=== PATIENT | female | born 1990 | race Caucasian/White ===

== ENCOUNTER 2017-02-21 03:26 | Inpatient (IN) | payer BC ==
[~2017-02-21] VITALS: Ht 157.5 cm; Wt 54.5 kg
[2017-02-27 02:06] LABS: HEMATOCRIT 38.5 % (37-47); MEAN CELL VOLUME 90.8 fL (80-100); MEAN CORPUSCULAR HEMOGLOBIN 31.4 pg (25-34); MEAN CORPUSCULAR HGB CONC 34.5 g/dl (32-36); MEAN PLATELET VOLUME 10.6 fL (7.4-10.4); PLATELET COUNT 196 K/uL (130-400); RED BLOOD COUNT 4.24 M/uL (4.2-5.4); WHITE BLOOD COUNT 13.92 K/uL (4.8-10.8)
[2017-02-27] MEDS ORDERED: PRENTAB26 PO (02:06)
[2017-02-27 02:14] VITALS: Ht 157.5 cm; Wt 54.5 kg
[2017-02-27] MEDS ORDERED: DINOPROSTONE 10 MG INSERT PV ONE (09:00)
--- NOTE | 2017-02-27 09:20 | Progress Note ---
Progress Note Date of Service February 27, 2017. Progress Note Admit Note 26 F P0000 at 40.6 weeks admitted for induction of labor for post-dates. Cervix 1-2/60/-3/vertex/posterior. EFW 8 lbs. GBS negative. FHT Cat 1. No complications during . Cervidil 10 mg placed in vagina.
--- NOTE | 2017-02-27 14:36 | Progress Note ---
Progress Note Date of Service February 27, 2017. Progress Note Contractions are now regular. Cervix /-2. Cervidil removed. T Cat 1. Will consider epidural forlabor.
[2017-02-27] MEDS ORDERED: BUPIVACAINE 0.25% 30 ML VIAL ONE (14:57)
[2017-02-27] MEDS: LACTATED RINGER'S 1000ML 1,000 ML IV PRN ×2 (14:58→23:27)
[2017-02-27] MEDS ORDERED: FENTANYL CITRATE INJ 50 MCG/1 ML 2 ML VIAL ONE ×2 (14:58→20:08)
[2017-02-27] MEDS ORDERED: EpHEDrine SULFATE INJ 50 MG/ML AMP ONE (14:58)
[2017-02-27] MEDS ORDERED: FENTANYL 2MCG/ML ROPIV 1.25MG/ML 100ML BAG EPI ONE (14:58)
[2017-02-27] MEDS: LACTATED RINGER'S 1000ML 1,000 ML IV SCH ×2 (15:57→23:27)
[2017-02-27] MEDS ORDERED: NALOXONE HCL INJ 1 MG in SODIUM CHLORIDE 0.9% 1000ML 1,000 ML IV PRN (16:24)
[2017-02-27] MEDS ORDERED: LACTATED RINGER'S 1000ML 500 ML IV PRN ×2 (16:24→19:56)
[2017-02-27] MEDS ORDERED: DiphenhydrAMINE HCL 50 MG/ML VIAL IV PRN (16:30)
[2017-02-27] MEDS ORDERED: NALBUPHINE HCL INJ 10 MG/ML AMP IV PRN (16:30)
[2017-02-27] MEDS ORDERED: EpHEDrine SULFATE INJ 50 MG/ML AMP IV PRN (16:30)
[2017-02-27] MEDS ORDERED: NALOXONE HCL INJ 0.4 MG/1 ML VIAL/CARP IV PRN (16:30)
--- NOTE | 2017-02-27 17:13 | Progress Note ---
Progress Note Date of Service February 27, 2017. Progress Note cervix 4-/-2 AROM with clear fluid FHT Cat 1
[2017-02-27] MEDS: FENTANYL 2MCG/ML ROPIV 1.25MG/ML 100ML BAG EPI PRN ×3 (19:08→23:15)
--- NOTE | 2017-02-27 19:56 | Progress Note ---
Progress Note Date of Service February 27, 2017. Progress Note Cervix /-2 FHT Cat 1 Will start oxytocin to augment contractions EFW 8 lbs.
[2017-02-27] MEDS ORDERED: OXYTOCIN 30 UNITS/500ML NSS IV PRN (20:00)
--- NOTE | 2017-02-27 23:42 | Progress Note ---
Progress Note Date of Service February 27, 2017. Progress Note Cervix /-1 T Cat 1
[2017-02-28] MEDS: FENTANYL 2MCG/ML ROPIV 1.25MG/ML 100ML BAG EPI PRN ×3 (01:56→07:05)
[2017-02-28] MEDS ORDERED: SODIUM CHLORIDE 0.65% NA SOLN 45 ML (OCEAN) ONE (02:06)
[2017-02-28] MEDS ORDERED: SODIUM CHLORIDE 0.65% NA SOLN 45 ML (OCEAN) PRN (02:15)
[2017-02-28] MEDS ORDERED: NURSING DECISION MEDICATION ORDER ONE (02:15)
[2017-02-28] MEDS: LACTATED RINGER'S 1000ML 1,000 ML IV SCH ×2 (05:19→13:06)
[2017-02-28] MEDS ORDERED: MISOPROSTOL 200 MCG TAB ONE (12:07)
[2017-02-28] MEDS ORDERED: SUPERCREAM 0.870 % 15GM JAR EXT PRN (13:00)
[2017-02-28] MEDS ORDERED: MISOPROSTOL 200 MCG TAB PR SCH (13:00)
[2017-02-28] MEDS ORDERED: BENZOCAINE 20% AER SPR 82.5 GM CAN EXT PRN (13:00)
[2017-02-28] MEDS ORDERED: HYDROCORTISONE ACETATE 25 MG SUPP PR PRN (13:00)
[2017-02-28] MEDS ORDERED: ACETAMINOPHEN/CODEINE 300/30MG TAB PO PRN ×2 (13:00)
[2017-02-28] MEDS ORDERED: OXYCODONE/ACETAMINOPHEN 5-325 TAB PO PRN (13:00)
[2017-02-28] MEDS ORDERED: OXYTOCIN 30 UNITS/500ML NSS IV PRN (13:00)
[2017-02-28] MEDS ORDERED: LANOLIN OINT EXT PRN ×2 (13:00)
[2017-02-28] MEDS ORDERED: ACETAMINOPHEN 325 MG TAB PO PRN (13:00)
[2017-02-28] MEDS ORDERED: IBUPROFEN 600 MG TAB ONE (13:24)
--- NOTE | 2017-02-28 15:50 | Anesthesia Procedure Note ---
Anesthesia Epidural Removal Nt Date & Time February 28, 2017 at 15:51 Vital Signs Pain Intensity: 1.0 Notes Mental Status: alert / awake / arousable, participated in evaluation Nausea / Vomiting: adequately controlled Pain: adequately controlled Airway Patency, RR, SpO2: stable & adequate BP & HR: stable & adequate Hydration State: stable & adequate Neuraxial Anesthesia: was administered Anesthetic Complications: no major complications apparent, pt satisfied with anesthetic care Epidural: removed without complications, with tip intact
--- NOTE | 2017-02-28 17:21 | DELIVERY SUMMARY ---
DATE OF OPERATION: 02/28/2017 DELIVERY NOTE The patient delivered a live male in occiput posterior presentation. There was loose nuchal cord which was easily reduced. Infant was delivered. Cord was clamped and cut. There was delayed cord clamping. After 1 minute the cord was clamped and cut and placed on mother's abdomen. 's weight is pending. Apgars 8 and 9. Inspection of the perineum showed a midline second-degree laceration with a left sulcus tear which was repaired with 2-0 Vicryl in layers. There was good sphincter tone after repair. Rectal exam post repair showed no sutures palpable in the rectum. Estimated blood loss is 500 mL. Placenta appears grossly normal. There is a 3-vessel cord seen on placenta. There is good hemostasis. and mother are doing well in recovery. All instruments are removed from the vagina including sponges, needles and retractors. After labor mother and baby are doing well in recovery. I attest to the content of the Intraoperative Record and any orders documented therein. Any exceptio ns are noted below.
[2017-02-28 17:53] VITALS: BP 119/77; PULSE 91; TEMP 37.2; O2SAT 100; O2SAT 98
[2017-02-28 20:00] VITALS: BP 118/80; PULSE 91; TEMP 36.8; O2SAT 100
[2017-02-28] MEDS: DOCUSATE SODIUM 100 MG CAP PO SCH (20:04)
[2017-02-28] MEDS: IBUPROFEN 600 MG TAB PO PRN (20:54)
[2017-02-28 23:20] VITALS: BP 110/70; PULSE 83; TEMP 36.8; O2SAT 98
[2017-03-01 03:15] VITALS: BP 106/72; PULSE 82; TEMP 36.6; O2SAT 98
[2017-03-01 05:44] LABS: HEMATOCRIT 29.2 % (37-47)
--- NOTE | 2017-03-01 07:46 | OB/GYN Progress Note ---
NEWS VIDEOTAPE EDITOR Progress Note Date of Service: March 01, 2017. Patient is seen and examined. She feels well, no complaints. Ambulating without dizziness Voiding without difficulty Tolerating regular diet with out N&V Bleeding is minimal No fever/ chills/ CP/ SOB/ N&V/ Leg pain Breast feeding without problems Date Time Temp Pulse Resp B/P Pulse Ox O2 Delivery O2 Flow Rate FiO2 03/01/17 03:15 36.6 82 18 106/72 98 Room Air 02/28/17 23:20 36.8 83 18 110/70 98 Room Air 02/28/17 23:20 Room Air 02/28/17 20:00 36.8 91 18 118/80 100 Room Air 02/28/17 17:53 100 Room Air 02/28/17 17:53 37.2 91 20 119/77 98 Room Air Last 24 Hours Test 03/01/17 05:22 Hemoglobin 10.0 g/dL Hematocrit 29.2 % PE: General: Alert, orientedx3, NAD Abd: soft, NT, fundus firm, below Umbilicus Perineum intact, Lochia rubra minimal Ext; NT, no edema AP: 26 yo s/p , ppd# 1 VSS Afebrile doing well Continue routine care All questions were answered D/C home tomorrow
[2017-03-01 08:00] VITALS: BP 114/80; PULSE 76; TEMP 36.6; O2SAT 98
[2017-03-01] MEDS: PRENATAL VITAMIN TAB PO SCH (08:05)
[2017-03-01] MEDS: DOCUSATE SODIUM 100 MG CAP PO SCH ×2 (08:05→20:27)
[2017-03-01] MEDS: FERROUS SULFATE 325 MG TAB PO SCH (08:05)
[2017-03-01] MEDS: IBUPROFEN 600 MG TAB PO PRN ×3 (08:06→19:00)
[2017-03-01] MEDS ORDERED: IBUPROFEN 600 MG TAB PO PRN (08:15)
[2017-03-01] MEDS ORDERED: BENZOCAINE 20% AER SPR 82.5 GM CAN EXT PRN (08:15)
[2017-03-01] MEDS ORDERED: LANOLIN OINT EXT PRN ×2 (08:15)
[2017-03-01] MEDS ORDERED: OXYCODONE/ACETAMINOPHEN 5-325 TAB PO PRN (08:15)
[2017-03-01] MEDS ORDERED: SUPERCREAM 0.870 % 15GM JAR EXT PRN (08:15)
[2017-03-01] MEDS ORDERED: OXYTOCIN 30 UNITS/500ML NSS IV PRN (08:15)
[2017-03-01] MEDS ORDERED: ACETAMINOPHEN/CODEINE 300/30MG TAB PO PRN ×2 (08:15)
[2017-03-01] MEDS ORDERED: ACETAMINOPHEN 325 MG TAB PO PRN (08:15)
[2017-03-01] MEDS ORDERED: HYDROCORTISONE ACETATE 25 MG SUPP PR PRN (08:15)
--- NOTE | 2017-03-01 08:58 | DELIVERY SUMMARY ---
DATE OF OPERATION: 03/01/2017 The patient delivered a live infant female in left occiput anterior presentation. There was nuchal cord which was easily reduced. Infant was delivered and placed on mother's abdomen. Delayed cord clamp was performed 1 minute after delivery. Placenta was spontaneously delivered. Inspection of the placenta showed grossly normal placenta with 3-vessel cord. Inspection of the perineum and vagina showed no significant laceration. There was a first degree left vaginal wall laceration which did not require suturing. Estimated blood loss was 500 mL. The patient received Pitocin and Cytotec rectally. Blood pressures are in normal range post-delivery. All instruments are removed from the vagina and accounted for x2 including sponges and retractors. Baby and mother are doing well and hemodynamically stable in recovery. I attest to the content of the Intraoperative Record and any orders documented therein. Any exceptio ns are noted below.
[2017-03-01] MEDS ORDERED: MISOPROSTOL 200 MCG TAB PR SCH (09:00)
[2017-03-01 14:55] VITALS: BP 120/74; PULSE 83; TEMP 37
[2017-03-01] MEDS ORDERED: BISACODYL 5 MG TABEC PO SCH (20:00)
[2017-03-01] MEDS ORDERED: DOCUSATE SODIUM 100 MG CAP PO SCH (20:00)
[2017-03-01 23:55] VITALS: BP 114/78; PULSE 84; TEMP 36.8
[2017-03-02] MEDS: IBUPROFEN 600 MG TAB PO PRN (04:03)
[2017-03-02 06:53] LABS: MEAN CELL VOLUME 90.9 fL (80-100); MEAN CORPUSCULAR HEMOGLOBIN 30.1 pg (25-34); MEAN CORPUSCULAR HGB CONC 33.1 g/dl (32-36); MEAN PLATELET VOLUME 10.1 fL (7.4-10.4); PLATELET COUNT 205 K/uL (130-400); RED BLOOD COUNT 3.19 M/uL (4.2-5.4); WHITE BLOOD COUNT 15.86 K/uL (4.8-10.8)
[2017-03-02] MEDS ORDERED: BISACODYL 10 MG SUPP PR PRN (07:00)
[2017-03-02] MEDS ORDERED: PRENATAL VITAMIN TAB PO SCH (08:00)
[2017-03-02] MEDS ORDERED: FERROUS SULFATE 325 MG TAB PO SCH (08:00)
[2017-03-02] MEDS: FERROUS SULFATE 325 MG TAB PO SCH (08:29)
[2017-03-02] MEDS: DOCUSATE SODIUM 100 MG CAP PO SCH (08:29)
[2017-03-02] MEDS: PRENATAL VITAMIN TAB PO SCH (08:29)
[2017-03-02 08:30] VITALS: BP 112/76; PULSE 88; TEMP 36.6; O2SAT 99
[2017-03-02] MEDS ORDERED: MTR600X PO (10:47)
--- NOTE | 2017-03-02 10:49 | Discharge Instructions ---
Discharge Instructions Date of Service March 02, 2017. Admission Reason for Admission: Induction Discharge Discharge Diagnosis / Problem: term delivered Discharge Goals Goal(s): Routine recovery after delivery Activity Recommendations Activity Limitations: as noted below Lifting Limitations: no more than 10 pounds Exercise/Sports Limitations: until after follow-up appointment May Resume Sexual Activity: after follow-up appointment Shower/Bathe: no limitations Driving or Machine Use: resume 3 days after discharge . Instructions / Follow-Up Instructions / Follow-Up ACTIVITY RECOMMENDATIONS: * Gradual return to full activity over the next 2-3 weeks. * No lifting - nothing heavier than baby over the next 2-3 weeks. * Do not engage in vigorous exercise, sexual activity or sports until cleared by your physician. * Do not drive or operate any motorized equipment until cleared by your physician. * You may shower/bathe daily. BREAST CARE: If you are not breast feeding: * Wear a supportive bra 24 hours a day for one to two weeks. * Avoid stimulating your breasts and nipples as much as possible during the first few weeks after delivery. * When taking a shower, have the warm water hit your back, not breasts. * When your breasts feel full, apply ice packs. Usually three to four times a day helps ease the discomfort. * Take a mild pain medication (Tylenol/Motrin) when you are uncomfortable. If breast feeding: * Use breast milk to lubricate nipples. Lansinoh cream may be used for sore nipples. You do not need to remove cream prior to breast feeding. If using a different brand of cream, check the label for directions regarding removal of cream prior to nursing. * Wear a supportive bra. * If having problems with breasts or breast feeding, call a information technology consultant or your health care provider. EPISIOTOMY CARE: After delivery, if you have an episiotomy (stitches), the following steps will ease discomfort and aid healing. * For the first 24 hours after delivery, place ice packs next to your episiotomy to help reduce swelling. * After the first 24 hour-period, sitz baths, either portable or in the tub, are suggested. A shower with a shower arm sprayed over the episiotomy may be comforting. * Jeniffer care should be done after each voiding and bowel movement. Squirt warm water from a plastic bottle over the perineum (region of the body between the anus and urinary opening) and pat dry. * Use Dermoplast to ease discomfort. Shake container. Inman directly over the episiotomy. * Place a Tucks on a clean sanitary pad next to your episiotomy. OVER THE COUNTER MEDICATION: * For discomfort or pain, you may use Acetaminophen (Tylenol), Ibuprofen (Advil ), or Naproxen (Aleve) following the package directions. * For constipation you may use Colace following the package directions. SPECIAL CARE INSTRUCTIONS: When you are discharged from the hospital, it is important for you to follow the instructions listed below: * During the first week at home, you should be able to care for yourself and your baby. In addition, the usual light household activities are encouraged. * Limit your activities to the way you feel. Do not try to clean the house or move furniture. Be sensible. * If you actively engage in sports and have done so up until the time of your delivery, you may resume these activities as soon as you feel able. This may take up to one month or even longer. Use good judgment. * Continue to take your vitamins for at least six weeks after the of your baby. * Your diet need not be limited unless you were on a special diet before your delivery. Breast-feeding mothers need around 2500 calories per day and at least 64-80 ounces of fluid per day (8 to 10 glasses). * You should eat foods from the four major food groups. Crash diets or fad diets are to be avoided. Eating lean meats, fresh fruits and vegetables, low-fat dairy products, high fiber foods and a regular exercise program, will help you get back to your pre- weight without putting your health at risk. * Constipation is sometimes a problem after delivery. Take a mild laxative as needed. If breast feeding, Milk of Magnesia is acceptable to use. You may use a suppository or Fleets enema if no episiotomy. * A daily shower or tub bath is suggested. Be sure to thoroughly and gently dry the perineum. * A bloody vaginal discharge will usually continue until around four weeks post . A small amount of bleeding may continue for as long as six weeks. Vaginal discharge changes from the bright red bleeding after delivery to pink then brownish and finally yellowish-pink before becoming white and disappearing. * Bleeding may increase with activity. Your first period may come in 4-8 weeks. If you are breast feeding, your period may be delayed even longer. * Timken (sex) can begin whenever both you and your partner feel comfortable and do not have any form of genital infection. It is recommended that you wait until after your return appointment and discuss with your physician. If you have questions, please talk to your health care practitioner. A condom should be used to prevent infection and . * Foreplay, gentle intercourse and lubrication is very important the first several times to prevent pain. A water-based lubricant such as K-Y jelly or Astroglide may be used. * Tampons may be used six weeks after delivery. * Douching should be avoided for 6 weeks after delivery. * If you have RH negative blood and your baby is RH positive, you will receive RHOGAM by injection prior to discharge. The nurse will give you a card to keep with you that has the date and place that you received RHOGAM after delivery. * During your care, you had a Rubella screen done to check for the presence of rubella antibodies in your blood. If your test was negative, you will receive a Rubella vaccine prior to discharge. This vaccine may cause a fever, soreness at the injection site and flu-like symptoms. If these symptoms persist, notify your health care practitioner. is not advised for three months after a Rubella vaccine. There is a higher chance of having a baby with defects if conceived within three months of getting the vaccine. * If you were discharged 24 hours from delivery or before 48 hours: Visiting nurses will come to your home 48 hours after discharge to assess you and your baby. The visiting nurse will meet with you while you are in the hospital to arrange a time and get directions to your home. * Verbalizes understanding of car seat law as reviewed with patient nursing. * Car Seat hand-out given and reviewed with patient by nursing. * Shaken baby information reviewed with patient by nursing. Call you doctor if: * Heavy bleeding (saturating several pads an hour) or passing clots the size of your fist. * A fever >101 degrees F (38.3 degrees C) on two occasions four hours apart and/or chills. * Unusual pain in the pelvic or vaginal areas. * "Baby Blues" lasting longer than two weeks. If you have any questions or concerns, call your health care practitioner at . FOLLOW-UP VISIT: * Please call the office at to schedule a 6 week examination. It is important you keep this appointment. * It is important for you to make arrangements for either yearly or twice yearly check-ups thereafter. Current Hospital Diet Patient's current hospital diet: Regular OB Diet Discharge Diet Recommended Diet: Regular OB Diet Fluid Restriction: None Pending Studies Studies pending at discharge: no Work Instructions Return To Work: after follow-up Lifting Limitations: no more than 10 pounds Medical Emergencies . Who to Call and When: Medical Emergencies: If at any time you feel your situation is an emergency, please call 911 immediately. . Non-Emergent Contact Non-Emergency issues call your: Primary Care Provider . . "Provider Documentation" section prepared by Clifton Kruse. . VTE Core Measure Inpt VTE Proph given/why not?: Treatment not indicated
--- NOTE | 2017-03-02 10:51 | OB/GYN Progress Note ---
LEGAL JOB TITLES Progress Note Date of Service March 02, 2017. Subjective conversation w/ patient, conversation w/ family, physical exam Ambulation: ambulating normally Voiding: no voiding problems Passing Gas: Yes Diet Tolerance: Regular Diet Lochia: Small Feeding Type: Breast Feeding Objective Vital Signs Date Time Temp Pulse Resp B/P Pulse Ox O2 Delivery O2 Flow Rate FiO2 03/02/17 08:30 99 Room Air 03/02/17 08:30 36.6 88 16 112/76 99 Room Air 03/01/17 23:55 Room Air 03/01/17 23:55 36.8 84 18 114/78 Room Air 03/01/17 14:55 37.0 83 18 120/74 Room Air 03/01/17 14:55 Room Air Physical Exam General Appearance: WELL-APPEARING, NO APPARENT DISTRESS Abdomen: non tender, soft, no organomegaly Fundus: Firm Extremities: non-tender, normal inspection, no pedal edema, no calf tenderness Laboratory Results Last 24 Hours Test 03/02/17 06:37 White Blood Count 15.86 K/uL Red Blood Count 3.19 M/uL Hemoglobin 9.6 g/dL Hematocrit 29.0 % Mean Corpuscular Volume 90.9 fL Mean Corpuscular Hemoglobin 30.1 pg Mean Corpuscular Hemoglobin Concent 33.1 g/dl RDW Standard Deviation 45.4 fL RDW Coefficient of Variation 13.6 % Platelet Count 205 K/uL Mean Platelet Volume 10.1 fL Assessment and Plan Post- Day Number: 2 Continue Routine Care: discharged
[2017-03-02 12:40] VITALS: BP_DIAS 76; PULSE 88; TEMP 36.6
[2017-03-02] MEDS ORDERED: BISACODYL 5 MG TABEC PO SCH (20:00)
[2017-03-03] MEDS ORDERED: BISACODYL 10 MG SUPP PR PRN (07:00)
== END 2017-03-02 12:40 | disposition home or self-care (01) | DRG 775 ==
LOC: C.LD 02-27 00:56 → C.OBG 02-28 18:03
PROVIDERS: ADMIT Obstetrics & Gynecology; ATTEND Obstetrics & Gynecology
PROC: 3E033VJ Introduction of Other Hormone into Peripheral Vein, Percutaneous Approach (ICD-10-PCS; principal; 2017-02-28)
PROC: 10E0XZZ Delivery of Products of Conception, External Approach (ICD-10-PCS; principal; 2017-02-28)
PROC: 3E0P7GC Introduction of Other Therapeutic Substance into Female Reproductive, Via Natural or Artificial Opening (ICD-10-PCS; principal; 2017-02-28)
PROC: 0KQM0ZZ Repair Perineum Muscle, Open Approach (ICD-10-PCS; principal; 2017-02-28)
PROC: 10907ZC Drainage of Amniotic Fluid, Therapeutic from Products of Conception, Via Natural or Artificial Opening (ICD-10-PCS; principal; 2017-02-28)
DX: O48.0 Post-term pregnancy (principal); O70.1 Second degree perineal laceration during delivery; O69.81X0 Labor and delivery complicated by cord around neck, without compression, not applicable or unspecified; O71.89 Other specified obstetric trauma; Z3A.40 40 weeks gestation of pregnancy; Z37.0 Single live birth

== ENCOUNTER 2020-04-27 10:33 | Inpatient (IN) ==
[2020-04-27] MEDS ORDERED: OXYTOCIN 30 UNITS/500 ML BAG IV PRN ×2 (11:30→18:33)
--- NOTE | 2020-04-27 11:39 | History & Physical Report ---
Date of Service April 27, 2020 Assessment & Plan (1) Spontaneous rupture of amniotic membranes: 29 yo at 39.4 wks with SROM at 0930 am, regular contractions VSS Afebrile FHR reassuring GBS negative Plan to admit, monitor, epidural for pain All questions were answered History of Present Illness Primary Care Provider: NO PCP Patient is a 29 yo at 39.4 wks who felt a gush of fluid leaking at 0930 am, it was clear She has been feeling contractions since then No VB +FM Her has been uncomplicated GBS negative Allergies Allergy/AdvReac Type Severity Reaction Status Date / Time Cephalosporins Allergy Intermediate HIVES Verified 04/27/20 10:55 Home Medications Home Medications Medication Instructions Recorded Confirmed Type PNV cmb#95-ferrous fumarate-FA 1 tab PO DAILY 04/27/20 04/27/20 History [] Patient History Medical History No known health problems Surgical History H/O wisdom tooth extraction History of tonsillectomy Family History Grandfather (Maternal) Colon cancer Hypertension Mother Diabetes Hypertension Father Diabetes Hypertension Grandmother (Maternal) Hypertension Social History Preferred Language: Chinese Cook Specialty Required: No Beliefs That Will Affect Care: None marital status: Current Living Situation: Spouse Current Living Situation Comment: lives with and 3 yo son Other Information That Helps Us Care for You: No Feels Safe at Home: Yes Safety Concerns: Feels Safe At This Time Smoking Status: Never smoker Hx Alcohol Use: No Hx Substance Use: No [employer] History in 2017 Review of Systems All systems reviewed & are unremarkable except as noted in HPI & below Physical Exam Constitutional: WD/WN, vitals as above well developed, well nourished and + acute distress (mild distress with contractions) Gastrointestinal (Abdomen): normal bowel sounds, soft, nontender, no hepatosplenomegaly (Gravid) Genitourinary: normal external appearance OB Exam Abdomen: + vertex Manual OB Exam: + cervical dilation 3 cm, + cervical effacement 70%, + station (hig) high and + amniotic fluid (abundant) clear OB Exam Monitor Tracing: + external uterine monitor used and + category I Results & Data Vital Signs (Past 12 Hours) Vital Signs Temp Pulse Resp BP 04/27/20 10:48 37.3 C 88 16 139/71 04/27/20 10:45 37.3 C 88 16 139/71
[2020-04-27] MEDS: LACTATED RINGER'S 1,000 ML IV PRN ×2 (11:44→12:43)
[2020-04-27 11:48] LABS: Hematocrit (blood only) 39.2 % (37-47); Hemoglobin 13.4 g/dL (12.0-16.0); Mean Corpuscular Hemoglobin 30.7 pg (25-34); Mean Corpuscular Volume 89.9 fL (80-100); Mean Platelet Volume 10.2 fL (7.4-10.4); Platelet Count 257 K/uL (130-400); RDW Coefficient of Variation 13.5 % (11.5-14.5); RDW Standard Deviation 44.2 fL (36.4-46.3); Red Blood Count 4.36 M/uL (4.2-5.4); White Blood Count 14.23 K/uL (4.8-10.8)
[2020-04-27] MEDS ORDERED: ePHEDrine sulfate 50 MG/ML AMP ONE (12:02)
[2020-04-27] MEDS ORDERED: BUPIVACAINE 0.25% 30 ML VIAL ONE (12:02)
[2020-04-27] MEDS ORDERED: fentaNYL citrate 100 MCG/2 ML VIAL ONE (12:02)
[2020-04-27] MEDS ORDERED: fentaNYL 2MCG/ML ROPIV 1.25MG/ML 100 ML BAG EPI ONE (12:03)
[2020-04-27 12:15] LABS: Albumin Level 2.9 gm/dl (3.4-5.0); BUN Creatinine Ratio 16.6 (10-20); Calcium 9.1 mg/dl (8.5-10.1); Creatinine Clr Calc Pharmacy 108.5 ml/min; Est GFR (African American) 130.2; Est GFR (Non-African American) 112.4; Potassium 3.9 mmol/L (3.5-5.1)
[2020-04-27 12:18] LABS: Albumin Globulin Ratio 0.7 (0.9-2); Bilirubin,Total 0.3 mg/dl (0.2-1); Globulin 4.4 gm/dl (2.5-4.0); Total Protein 7.3 gm/dl (6.4-8.2)
[2020-04-27 12:30] LABS: Mean Corpuscular Hgb Conc 34.2 g/dL (32-36)
--- NOTE | 2020-04-27 12:30 | Anesthesiology Consultation ---
Date of Service April 27, 2020 Assessment & Plan (1) Encounter for pre-operative examination: Chart Review Chart Review: Patient NOT seen in Pre Admission Testing and Acceptable Risk for Labor Epidural Consults Requested none ASA ASA2 Proposed Anesthesia Anesthesia Type: Labor Epidural Risk / Benefits Reviewed With: PT / POA / Parent / Guardian, Accepts Plan and Informed Consent Obtained History Height/Weight Height: 5 ft 2 in Weight: 75.296 kg Allergies Allergy/AdvReac Type Severity Reaction Status Date / Time Cephalosporins Allergy Intermediate HIVES Verified 04/27/20 10:55 Medications Home Medications Medication Instructions Recorded Confirmed Last Taken PNV cmb#95-ferrous fumarate-FA 1 tab PO DAILY 04/27/20 04/27/20 04/27/20 08:00 [] Active Medications Generic Name Dose Route Start Last Admin Trade Name Freq PRN Reason Stop Dose Admin Lactated Ringer's 1,000 mls @ 150 mls/hr 04/27/20 11:30 04/27/20 12:43 Lr IV 04/29/20 11:29 150 mls/hr .[id number] PRN Administration L&D Protocol Protocol NPO Date Last Intake of Fluids: 04/27/20 Time Last Intake of Fluids: 12:28 Date Last Intake of Solids: 04/27/20 Time Last Intake of Solids: 08:30 Past Medical History Medical History No known health problems Exercise / Class Metabolic Activity II 4-5 Yardwork/Stairs/Walk up hill Past Family History Family History Grandfather (Maternal) Colon cancer Hypertension Mother Diabetes Hypertension Father Diabetes Hypertension Grandmother (Maternal) Hypertension Past Surgical History Surgical History H/O wisdom tooth extraction History of tonsillectomy Past Anesthesia History No Hx of Anesthesia Complications History of PONV No Hx of PONV Social History Smoking Status: Never smoker Hx Alcohol Use: No Hx Substance Use: No substance use type: does not use Review of Systems Patient denies history of abnormal bleeding or bleeding disorder. Patient de nies active use of anticoagulants other than low dose aspirin. Patient denies numbness, tingling or weakness in lower extremities. Physical Exam Vital Signs Last Vital Signs Temp 37.3 C 04/27/20 10:48 Pulse 77 04/27/20 12:23 Resp 16 04/27/20 10:48 BP 139/71 04/27/20 10:48 Pulse Ox 100 04/27/20 12:23 Constitutional not obese (Gravid uterus) ENMT Mouth: no TMJ abnormality and oral opening not small Thyromental Distance: > or= 3.5 Finger Breadths Mallampati Class: II Neck normal visual inspection; neck extension not limited Respiratory normal respiratory effort Auscultation: lungs clear to auscultation bilaterally Cardiovascular Rate/Rhythm: regular rate and regular rhythm Heart Sounds: no murmur Neurologic moves all extremities Motor/Sensory: no sensory deficit Psychiatric Orientation: alert and oriented x 3 Testing Laboratory Results 04/27/20 11:35 04/27/20 11:35
[2020-04-27] MEDS ORDERED: fentaNYL 2MCG/ML ROPIV 1.25MG/ML 100 ML BAG EPI PRN (13:04)
[2020-04-27] MEDS ORDERED: NALOXONE HCL 0.4 MG/1 ML VIAL/CARP IV PRN (13:04)
[2020-04-27] MEDS ORDERED: DiphenhydrAMINE HCL 50 MG/ML VIAL IV PRN (13:04)
[2020-04-27] MEDS ORDERED: NALOXONE HCL 1 MG in SODIUM CHLORIDE 0.9% 1000ML 1,000 ML IV PRN (13:04)
[2020-04-27] MEDS ORDERED: ePHEDrine sulfate 50 MG/ML AMP IV PRN (13:04)
[2020-04-27] MEDS ORDERED: ONDANSETRON INJ 2 MG/ML 2 ML VIAL IV PRN (13:04)
[2020-04-27] MEDS ORDERED: OXYCODONE/ACETAMINOPHEN 5mg/325mg TAB PO PRN (18:33)
[2020-04-27] MEDS ORDERED: HYDROCORTISONE ACETATE 25 MG SUPP PR PRN (18:33)
[2020-04-27] MEDS ORDERED: bisacodyL 10 MG SUPP PR PRN (18:33)
[2020-04-27] MEDS ORDERED: SUPERCREAM 0.870% 15 GM JAR EXT PRN (18:33)
[2020-04-27] MEDS ORDERED: DIPHTHERIA/TETANUS/PERTUSSIS 0.5 ML SYR/VIAL IM ONE (18:33)
[2020-04-27] MEDS ORDERED: ACETAMINOPHEN 325 MG TAB PO PRN (18:33)
[2020-04-27] MEDS ORDERED: BENZOCAINE 20% AER SPR 82.5 GM CAN EXT PRN (18:33)
--- NOTE | 2020-04-27 20:20 | Delivery Summary ---
DATE OF OPERATION: 04/27/2020 DATE OF DELIVERY: 04/27/2020 TIME OF DELIVERY: 1745 p.m. DETAILS OF DELIVERY: The patient was found to be fully dilated and desired to push. She pushed for about 15 minutes and there was a tight scarred band of tissue in the posterior vagina, which was from prior episiotomy and repair with her last delivery. It was holding the baby's head. It was incised gently on the tight portion and the baby's head was delivered without difficulty. Shoulders were delivered with minimal traction. Baby was handed to the mother where her mouth and nose were suctioned. Cord was clamped x2 and cut at 1 minute delay. Cord blood was obtained. Vagina and perineum were checked for lacerations. There was a vaginal laceration which was extending into the posterior vagina up into the mid third of vagina and there was a small second-degree on the right labia perineal part. First the vagina from the top corner was held, and it was sutured with 2-0 Vicryl [id number] stitch and it was continued through posterior vaginal wall, was brought to the perineum. Then the bulbocavernous muscles and the perineal body muscles were repaired together and skin in a subcuticular fashion. There was a small laceration on the right hymenal area extending into the right lower labia at about 7 o'clock position, which was also repaired with 2-0 Vicryl in a continuous fashion and the skin in a subcuticular fashion. Excellent hemostasis was achieved. Rectal exam was done, found to have excellent sphincter tone and no sutures were felt. Gloves were changed. The placenta was found to be in the vagina, delivered spontaneously as intact and complete. Fundus was firm. EBL was 200ml. Mom and baby tolerated the procedure well. Sponge, lap, needle count was correct x2. Baby was a viable female infant, Apgars 8/9, weight is 3022 grams. No complications happened. I was present during whole procedure. I attest to the content of the Intraoperative Record and any orders documented therein. Any exceptions are noted below. MTDD
[2020-04-27] MEDS: IBUPROFEN 600 MG TAB PO PRN (21:09)
[2020-04-27] MEDS: DOCUSATE SODIUM 100 MG CAP PO SCH (21:14)
--- NOTE | 2020-04-27 21:46 | Anesthesia Procedure Note ---
Date of Service April 27, 2020 Anesthesia Post Epidural Note Vital Signs Vital Signs: Temp Pulse Resp BP Pulse Ox 37.0 C 103 H 18 95/65 L 97 04/27/20 21:00 04/27/20 21:00 04/27/20 21:00 04/27/20 21:00 04/27/20 21:00 Notes Mental Status: alert / awake / arousable and participated in evaluation Nausea / Vomiting: adequately controlled Pain: adequately controlled Airway Patency, RR, SpO2: stable & adequate BP & HR: stable & adequate Hydration State: stable & adequate Neuraxial Anesthesia: was administered and sensory block is resolving Anesthetic Complications: no major complications apparent and Pt Satisfied with anesthetic care Epidural: Removed without complications and With tip intact Notes: Epidural site clean, dry and intact. No signs of edema, erythema or bruising at insertion site. Pt instructed to request anesthesia if she has residual lower extremity numbness or if she develops lower extremity pain or weakness, back pain or headache.
[2020-04-28] MEDS: IBUPROFEN 600 MG TAB PO PRN ×2 (03:48→11:27)
[2020-04-28 07:37] LABS: Hematocrit (blood only) 34.7 % (37-47); Hemoglobin 11.8 g/dL (12.0-16.0); Mean Corpuscular Hemoglobin 30.4 pg (25-34); Mean Corpuscular Volume 89.4 fL (80-100); Mean Platelet Volume 10.4 fL (7.4-10.4); Platelet Count 254 K/uL (130-400); RDW Coefficient of Variation 13.6 % (11.5-14.5); RDW Standard Deviation 43.9 fL (36.4-46.3); Red Blood Count 3.88 M/uL (4.2-5.4); White Blood Count 20.67 K/uL (4.8-10.8)
[2020-04-28] MEDS: DOCUSATE SODIUM 100 MG CAP PO SCH (07:59)
[2020-04-28] MEDS ORDERED: FERROUS SULFATE 325 MG TAB PO SCH (08:00)
[2020-04-28] MEDS ORDERED: PRENATAL VITAMIN 1 TAB PO SCH (08:00)
--- NOTE | 2020-04-28 10:46 | Obstetrical Progress Note ---
Date of Service April 28, 2020 Assessment & Plan Admission and Anticipated Discharge Date Admission Date: April 27, 2020 Subjective PPD#1 patient doing well plans to home later today passing gas out of bed tolerating diet Physical Exam Constitutional: WD/WN, vitals as above comfortable no edema neg Angeline's for d/c today Results & Data ([facility]) Vital Signs (Past 12 Hours) Vital Signs Temp Pulse Resp BP Pulse Ox 04/28/20 07:50 36.8 C 86 18 93/62 L 97 04/28/20 03:45 36.4 C L 75 18 106/72 98 04/27/20 23:50 36.5 C 87 18 99/65 L 97 Laboratory Results Laboratory Results - last 72 hr 04/27/20 04/27/20 04/28/20 11:35 11:35 07:14 WBC 14.23 H 20.67 H RBC 4.36 3.88 L Hgb 13.4 11.8 L Hct 39.2 34.7 L MCV 89.9 89.4 MCH 30.7 30.4 MCHC 34.2 34.0 RDW Std Deviation 44.2 43.9 RDW Coeff of Joel 13.5 13.6 Plt Count 257 254 MPV 10.2 10.4 Sodium 138 Potassium 3.9 Chloride 107 Carbon Dioxide 23 Anion Gap 8.0 BUN 12 Creatinine 0.72 Est Cr Clr Drug Dosing 108.5 Est GFR ( Amer) 130.2 Est GFR (Non-Af Amer) 112.4 BUN/Creatinine Ratio 16.6 Glucose 71 Calcium 9.1 Total Bilirubin 0.3 AST 14 L ALT 11 L Alkaline Phosphatase 121 H Total Protein 7.3 Albumin 2.9 L Globulin 4.4 H Albumin/Globulin Ratio 0.7 L
[2020-04-28] MEDS ORDERED: bisacodyL 5 MG TABEC PO SCH (20:00)
== END 2020-04-28 18:50 | disposition home or self-care (01) | DRG 819 ==
LOC: OPB 10:33 → 4S1 10:36 → 4S2 20:58